=== PATIENT | female | born 1970 | race American Indian/Alaskan Native ===

== ENCOUNTER 2016-10-11 15:46 | Emergency (ER) | payer MEDICARE, MEDICAID ==
[~2016-10-11 15:46] MED LIST: ALPRAZOLAM0.5 MG PO; BACTRIM DS 8001 TAB PO; BRINTELLIX PO; BUSPIRONE5 MG PO; CEFDINIR300 MG PO; CELEXA20 MG PO; CEPHALEXIN500 M1 PO; CHLORHEXIDINE480 M1 PO; CITALOPRAM20 MG PO; CLEOCIN HC150 MG/CAP PO; CLINDAMYCIN300 MG PO; CLONAZEPAM0.5 MG; CYMBALTA60 M1 PO; DEPAKOTE ER500 M1 PO; DEPAKOTE500 M2 PO; DICLOFENAC; DOXYCYCLINE 10100 MG PO; ESTRACE0.5 MG; FLUOXETINE20 M1 PO; GOOD SENSE IBU200 MG PO; METOPROLOL SUCC25 M1 PO; METOPROLOL SUCC50 M1 PO; NORCO 325 MG-51 TA1 PO; NORCO 325 MG-51 TAB PO; OMEPRAZOLE D/R20 MG PO; OXYCODONE5 M1 PO; PAXIL10 MG PO; RANITIDINE150 MG PO; REQUIP0.25 MG PO; RISPERDAL 1M1 MG/TAB; ROXICODONE 55 MG/TAB PO; SERTRALINE; ST. JOSEPH81 M2 PO; XANAX0.5 MG PO; XANAX1 MG PO; ZOFRAN 4MG4 MG/2 ML IV; [UNRECOGNIZED DRUG - CODE] IV
[2016-10-11 15:57] VITALS: BP 99/53
== END 2016-10-11 17:26 | disposition left against medical advice (07) ==
LOC: ED 15:46
DX: K04.7 Periapical abscess without sinus (principal); K02.9 Dental caries, unspecified; Z53.20 Procedure and treatment not carried out because of patient's decision for unspecified reasons; F17.210 Nicotine dependence, cigarettes, uncomplicated

== ENCOUNTER 2017-03-02 10:53 | Emergency (ER) | payer MEDICARE, MEDICAID ==
[~2017-03-02] VITALS: Ht 172.7 cm; Wt 106.8 kg
[2017-03-02] MEDS ORDERED: OXYCODONE PO (12:21)
[2017-03-02] MEDS ORDERED: BACITRACIN TOPIC1 TU TP (12:21)
[2017-03-02 12:27] VITALS: BP 143/88
== END 2017-03-02 12:32 | disposition home or self-care (01) ==
LOC: ED 10:53
DX: T23.231A Burn of second degree of multiple right fingers (nail), not including thumb, initial encounter (principal); T23.151A Burn of first degree of right palm, initial encounter; X03.8XXA Other exposure to controlled fire, not in building or structure, initial encounter; W01.198A Fall on same level from slipping, tripping and stumbling with subsequent striking against other object, initial encounter; X19.XXXA Contact with other heat and hot substances, initial encounter

== ENCOUNTER 2017-04-05 12:06 | Emergency (ER) | payer MEDICARE, MEDICAID ==
[~2017-04-05] VITALS: Ht 172.7 cm; Wt 106.8 kg
[~2017-04-05 12:06] MED LIST changes: +BACITRACIN TOPIC1 TU TP; +OXYCODONE PO
[2017-04-05] MEDS ORDERED: OSTERA TABLET1 EACH PO (12:15)
[2017-04-05 13:08] VITALS: BP 128/78
== END 2017-04-05 13:09 | disposition home or self-care (01) ==
LOC: ED 12:06
DX: K12.0 Recurrent oral aphthae (principal)

== ENCOUNTER 2017-10-28 14:49 | Emergency (ER) | payer MEDICARE, MEDICAID ==
[~2017-10-28 14:49] MED LIST changes: +OSTERA TABLET1 EACH PO
[2017-10-28] MEDS ORDERED: IBU800 M1 PO (15:06)
[2017-10-28] MEDS ORDERED: BACTRIM DS TAB1 EACH PO (15:34)
[2017-10-28] MEDS ORDERED: LIDOCAINE HC20 MG/M1 MM (15:34)
[2017-10-28] MEDS ORDERED: XANAX0.5 M1 PO (15:34)
[2017-10-28] MEDS ORDERED: OXYCODONE5 M1 PO (15:34)
[2017-10-28 15:40] VITALS: BP 130/71
== END 2017-10-28 15:50 | disposition home or self-care (01) ==
LOC: ED 14:49
DX: J32.9 Chronic sinusitis, unspecified (principal); H92.01 Otalgia, right ear; F41.9 Anxiety disorder, unspecified; K12.1 Other forms of stomatitis; F17.200 Nicotine dependence, unspecified, uncomplicated; F32.9 Major depressive disorder, single episode, unspecified; F43.10 Post-traumatic stress disorder, unspecified

== ENCOUNTER 2017-11-22 14:16 | Emergency (ER) | payer MEDICARE, MEDICAID ==
[~2017-11-22 14:16] MED LIST changes: +BACTRIM DS TAB1 EACH PO; +IBU800 M1 PO; +LIDOCAINE HC20 MG/M1 MM; +XANAX0.5 M1 PO
[2017-11-22 14:32] VITALS: BP 123/78
[2017-11-22] MEDS ORDERED: MUCINEX DM 60 M1 TER PO (14:58)
[2017-11-22] MEDS ORDERED: RT ALBUTEROL CC18 GM IH (14:58)
[2017-11-22] MEDS ORDERED: OXYCODONE5 M1 PO (14:58)
[2017-11-22] MEDS ORDERED: CEFDINIR300 MG PO (14:58)
== END 2017-11-22 15:05 | disposition home or self-care (01) ==
LOC: ED 14:16
DX: H66.93 Otitis media, unspecified, bilateral (principal); J01.90 Acute sinusitis, unspecified; F17.200 Nicotine dependence, unspecified, uncomplicated; F41.9 Anxiety disorder, unspecified; F32.9 Major depressive disorder, single episode, unspecified; Z88.0 Allergy status to penicillin

== ENCOUNTER 2020-03-24 19:08 | Emergency (ER) | payer MEDICARE, MEDICAID ==
[~2020-03-24] VITALS: Ht 172.7 cm; Wt 89.8 kg
[~2020-03-24 19:08] MED LIST changes: -CLONAZEPAM0.5 MG; +KLONOPIN 1MG1 MG PO; +MUCINEX DM 60 M1 TER PO; +RT ALBUTEROL CC18 GM IH
[2020-03-24] MEDS ORDERED: NORCO 325 MG-51 TA1 PO (21:50)
[2020-03-24 22:03] VITALS: BP 122/73
== END 2020-03-24 22:04 | disposition home or self-care (01) ==
LOC: ED 19:08
DX: S02.2XXA Fracture of nasal bones, initial encounter for closed fracture (principal); S00.81XA Abrasion of other part of head, initial encounter; K21.9 Gastro-esophageal reflux disease without esophagitis; J45.909 Unspecified asthma, uncomplicated; F43.10 Post-traumatic stress disorder, unspecified; F17.210 Nicotine dependence, cigarettes, uncomplicated; Z88.0 Allergy status to penicillin; Z23 Encounter for immunization; Y04.8XXA Assault by other bodily force, initial encounter; Y92.009 Unspecified place in unspecified non-institutional (private) residence as the place of occurrence of the external cause
CPT/HCPCS: 90715

== ENCOUNTER 2020-12-16 17:28 | Emergency (ER) | payer MEDICARE, MEDICAID ==
[~2020-12-16 17:28] MED LIST changes: +CLEOCIN HCL150 M1 PO; -ESTRACE0.5 MG; +ESTRACE1 M1 PO; +ROPINIROLE HCL1 MG PO
[2020-12-16] MEDS ORDERED: RISPERIDONE M-TA2 MG PO (17:39)
[2020-12-16] MEDS ORDERED: PERCOCET 325 MG1 TA2 PO (18:18)
[2020-12-16 18:56] VITALS: BP 134/85
== END 2020-12-16 18:57 | disposition home or self-care (01) ==
LOC: ED 17:28
DX: K02.9 Dental caries, unspecified (principal); R56.9 Unspecified convulsions; F17.210 Nicotine dependence, cigarettes, uncomplicated; Z88.0 Allergy status to penicillin; Z79.51 Long term (current) use of inhaled steroids
CPT/HCPCS: J1885

== ENCOUNTER 2021-03-22 03:45 | Emergency (ER) | payer MEDICARE, MEDICAID ==
[~2021-03-22 03:45] MED LIST changes: +PERCOCET 325 MG1 TA2 PO; +RISPERIDONE M-TA2 MG PO
[2021-03-22] MEDS ORDERED: KLONOPIN 1MG1 MG PO (03:56)
[2021-03-22] MEDS ORDERED: TRAMADOL 50 MG TAB PO ×2 (03:56→05:46)
[2021-03-22] MEDS ORDERED: IBU800 M1 PO (05:46)
[2021-03-22 06:00] VITALS: BP 118/78
== END 2021-03-22 06:01 | disposition home or self-care (01) ==
LOC: ED 03:45
DX: M25.512 Pain in left shoulder (principal); F41.9 Anxiety disorder, unspecified; F32.9 Major depressive disorder, single episode, unspecified; F43.10 Post-traumatic stress disorder, unspecified; G89.29 Other chronic pain; M54.9 Dorsalgia, unspecified; F17.210 Nicotine dependence, cigarettes, uncomplicated; Z79.899 Other long term (current) drug therapy
CPT/HCPCS: J1885

== ENCOUNTER 2021-03-25 17:01 | Emergency (ER) | payer MEDICARE, MEDICAID ==
[~2021-03-25 17:01] MED LIST changes: +TRAMADOL 50 MG TAB PO
[2021-03-25 17:02] VITALS: BP 101/69
[2021-03-25 17:46] LABS: HEMATOCRIT 44.3 % (37.0-47.0); HEMOGLOBIN 15.1 g/dL (12.5-16.0); MEAN CELL VOLUME 84 fl (78-100); MEAN CORPUSCULAR HEMOGLOBIN 29 pg (27-31); MEAN CORPUSCULAR HGB CONC 34 g/dL (33-37); MEAN PLATELET VOLUME 8.5 fl (7.4-10.4); PLATELET COUNT 201 K/mm3 (130-400); RED BLOOD COUNT 5.27 M/mm3 (4.10-5.30); RED CELL DISTRIBUTION WIDTH 11.9 % (11.5-14.5); WHITE BLOOD COUNT 4.7 K/mm3 (4.8-10.8)
[2021-03-25 17:53] LABS: ALBUMIN 3.7 g/dL (3.5-5.0); POTASSIUM 3.5 mmol/L (3.5-5.1)
[2021-03-25 17:55] LABS: CALCIUM 9.5 mg/dL (8.3-10.5)
[2021-03-25 17:56] LABS: TOTAL PROTEIN 7.7 g/dL (6.4-8.3)
[2021-03-25 17:58] LABS: TOTAL BILIRUBIN 1.6 mg/dL (0.2-1.2)
[2021-03-25 19:11] LABS: LYMPHOCYTE 11 % (20-51); MONOCYTE 9 % (3-10); NEUTROPHILS 80 % (42-75); TEAR DROP CELLS 1+
[2021-03-25 19:44] LABS: URINE APPEARANCE HAZY; URINE BILIRUBIN NEGATIVE (NEGATIVE); URINE COLOR YELLOW; URINE GLUCOSE NEGATIVE (NEGATIVE); URINE KETONE NEGATIVE (NEGATIVE); URINE PROTEIN(semi-quant) TRACE mg/dL (NEGATIVE); URINE UROBILINOGEN 12 mg/dL (NORMAL)
[2021-03-25 19:45] LABS: URINE BLOOD NEGATIVE (NEGATIVE); URINE LEUKOCYTE ESTERASE TRACE (NEGATIVE); URINE MUCUS PRESENT (NOT PRESENT); URINE NITRATE NEGATIVE (NEGATIVE)
[2021-03-25] MEDS ORDERED: ROXICODONE 55 MG/TAB PO (21:31)
[2021-03-25 22:40] LABS: ALCOHOL IN-HOUSE < 10 mg/dL (<10)
[2021-03-25 22:42] LABS: LIPASE 33 U/L (8-78)
== END 2021-03-25 23:10 | disposition home or self-care (01) ==
LOC: ED 17:01
PROVIDERS: Physician Assistant
DX: B19.20 Unspecified viral hepatitis C without hepatic coma (principal); G40.909 Epilepsy, unspecified, not intractable, without status epilepticus; F17.200 Nicotine dependence, unspecified, uncomplicated; Z20.822 Contact with and (suspected) exposure to COVID-19; Z90.49 Acquired absence of other specified parts of digestive tract; Z90.710 Acquired absence of both cervix and uterus; Z79.899 Other long term (current) drug therapy
CPT/HCPCS: J1885; J7030; Q9967

== ENCOUNTER 2023-09-20 10:09 | Observation (INO) | payer MEDICARE, MEDICAID ==
[2023-09-20] VITALS (8 sets, daily range): BP systolic 89–100; BP diastolic 43–62
[~2023-09-20] VITALS: Ht 167.6 cm; Wt 78.3 kg
[~2023-09-20 10:09] MED LIST changes: +CYCLOBENZAPRINE10 M1 PO; +ESTRACE 1MG1 MG/TAB PO; +GOOD NEIGHBOR200 M3 PO; +OXYCODONE HCL10 M1 PO; +PHENERGAN 25 TA25 MG PO
[2023-09-20 10:55] LABS: HEMOGLOBIN 12.8 g/dL (12.5-16.0); MEAN CELL VOLUME 87 fl (78-100); MEAN CORPUSCULAR HEMOGLOBIN 29 pg (27-31); MEAN CORPUSCULAR HGB CONC 34 g/dL (33-37); MEAN PLATELET VOLUME 9.3 fl (7.4-10.4); PLATELET COUNT 211 K/mm3 (130-400); RED BLOOD COUNT 4.36 M/mm3 (4.10-5.30); RED CELL DISTRIBUTION WIDTH 12.7 % (11.5-14.5); WHITE BLOOD COUNT 19.2 K/mm3 (4.8-10.8)
[2023-09-20 10:56] LABS: ALBUMIN 3.5 g/dL (3.5-5.0)
[2023-09-20 10:57] LABS: CALCIUM 8.8 mg/dL (8.3-10.5)
[2023-09-20 10:59] LABS: TOTAL PROTEIN 6.3 g/dL (6.4-8.3)
[2023-09-20 11:14] LABS: TOTAL BILIRUBIN 0.5 mg/dL (0.2-1.2)
[2023-09-20 11:19] LABS: BAND 9 % (0-10)
[2023-09-20 11:20] LABS: LYMPHOCYTE 4 % (20-51); METAMYELOCYTE 1 % (0-0); MONOCYTE 6 % (3-10); NEUTROPHILS 79 % (42-75)
[2023-09-20 12:10] LABS: PH-URINE 5.5 (5.0 - 8.0); URINE APPEARANCE CLOUDY (CLEAR); URINE COLOR YELLOW (YELLOW); URINE GLUCOSE NEGATIVE (NEGATIVE); URINE KETONE NEGATIVE (NEGATIVE); URINE PROTEIN(semi-quant) 1+ (NEGATIVE)
[2023-09-20 12:11] LABS: URINE BILIRUBIN 1+ (NEGATIVE); URINE BLOOD TRACE-INTACT (NEGATIVE); URINE LEUKOCYTE ESTERASE NEGATIVE (NEGATIVE); URINE NITRATE NEGATIVE (NEGATIVE)
[2023-09-21] VITALS (7 sets, daily range): BP systolic 92–114; BP diastolic 56–72
[2023-09-21 07:11] LABS: HEMATOCRIT 33.3 % (37.0-47.0); HEMOGLOBIN 10.9 g/dL (12.5-16.0); MEAN CELL VOLUME 90 fl (78-100); MEAN CORPUSCULAR HEMOGLOBIN 29 pg (27-31); MEAN CORPUSCULAR HGB CONC 33 g/dL (33-37); PLATELET COUNT 175 K/mm3 (130-400); RED BLOOD COUNT 3.71 M/mm3 (4.10-5.30); RED CELL DISTRIBUTION WIDTH 12.9 % (11.5-14.5)
[2023-09-21 07:14] LABS: WHITE BLOOD COUNT 24.2 K/mm3 (4.8-10.8)
[2023-09-21 07:17] LABS: ALBUMIN 3.1 g/dL (3.5-5.0)
[2023-09-21 07:19] LABS: CALCIUM 8.2 mg/dL (8.3-10.5)
[2023-09-21 07:20] LABS: TOTAL PROTEIN 5.4 g/dL (6.4-8.3)
[2023-09-21 07:22] LABS: TOTAL BILIRUBIN 0.5 mg/dL (0.2-1.2)
[2023-09-21 08:04] LABS: LYMPHOCYTE 8 % (20-51); MONOCYTE 6 % (3-10); NEUTROPHILS 86 % (42-75)
[2023-09-22 02:12] VITALS: BP 102/67
[2023-09-22 05:49] VITALS: BP 111/73
[2023-09-22 09:01] LABS: BASO # 0.05 K/mm3 (0.02-0.10); EOS % 1.8 % (1.0-5.0); HEMATOCRIT 33.3 % (37.0-47.0); HEMOGLOBIN 11.1 g/dL (12.5-16.0); LYMPH# 2.63 K/mm3 (1.50-4.00); MEAN CELL VOLUME 88 fl (78-100); MEAN CORPUSCULAR HEMOGLOBIN 29 pg (27-31); MEAN CORPUSCULAR HGB CONC 33 g/dL (33-37); MEAN PLATELET VOLUME 9.8 fl (7.4-10.4); MONO # 0.67 K/mm3 (0.20-0.80); NEU # 12.64 K/mm3 (1.40-6.50); PLATELET COUNT 200 K/mm3 (130-400); RED BLOOD COUNT 3.79 M/mm3 (4.10-5.30); RED CELL DISTRIBUTION WIDTH 12.7 % (11.5-14.5); WHITE BLOOD COUNT 16.4 K/mm3 (4.8-10.8)
[2023-09-22 09:12] LABS: ALBUMIN 3.1 g/dL (3.5-5.0)
[2023-09-22 09:14] LABS: CALCIUM 8.6 mg/dL (8.3-10.5)
[2023-09-22 09:15] LABS: TOTAL PROTEIN 5.9 g/dL (6.4-8.3)
[2023-09-22 09:17] LABS: TOTAL BILIRUBIN 0.3 mg/dL (0.2-1.2)
[2023-09-22 09:52] VITALS: BP 123/76
[2023-09-22 13:43] VITALS: BP 121/73
[2023-09-22 17:13] VITALS: BP 110/63
== END 2023-09-22 19:19 | disposition other institution (70) ==
LOC: ED 10:09 → MED/SURG 12:03
PROVIDERS: Internal Medicine; ADMIT Physician Assistant
DX: R11.2 Nausea with vomiting, unspecified (principal); D72.829 Elevated white blood cell count, unspecified; I95.9 Hypotension, unspecified; I47.10 Supraventricular tachycardia, unspecified; F41.9 Anxiety disorder, unspecified; F17.210 Nicotine dependence, cigarettes, uncomplicated; Z59.00 Homelessness unspecified; Z86.19 Personal history of other infectious and parasitic diseases
CPT/HCPCS: G0378; J1885; J2405; J2543; J3370; J7030; J7050; Q9967

== ENCOUNTER 2023-09-22 15:45 | Inpatient (IN) | payer MEDICARE, MEDICAID ==
[~2023-09-22] VITALS: Ht 167.6 cm; Wt 78.3 kg
[2023-09-22 17:57] VITALS: BP 110/63
[2023-09-22 21:49] VITALS: BP 122/77
[2023-09-23 02:29] VITALS: BP 136/84
[2023-09-23 05:39] VITALS: BP 128/80
[2023-09-23 06:12] LABS: BASO # 0.05 K/mm3 (0.02-0.10); EOS # 0.44 K/mm3 (0.04-0.40); EOS % 3.9 % (1.0-5.0); HEMOGLOBIN 11.2 g/dL (12.5-16.0); LYMPH# 3.05 K/mm3 (1.50-4.00); MEAN CELL VOLUME 89 fl (78-100); MEAN CORPUSCULAR HEMOGLOBIN 29 pg (27-31); MEAN CORPUSCULAR HGB CONC 33 g/dL (33-37); MEAN PLATELET VOLUME 9.6 fl (7.4-10.4); MONO # 0.68 K/mm3 (0.20-0.80); NEU # 7.09 K/mm3 (1.40-6.50); PLATELET COUNT 228 K/mm3 (130-400); RED BLOOD COUNT 3.83 M/mm3 (4.10-5.30); RED CELL DISTRIBUTION WIDTH 12.7 % (11.5-14.5); WHITE BLOOD COUNT 11.4 K/mm3 (4.8-10.8)
[2023-09-23 06:17] LABS: CALCIUM 8.6 mg/dL (8.3-10.5)
[2023-09-23 06:18] LABS: TOTAL PROTEIN 5.6 g/dL (6.4-8.3)
[2023-09-23 06:33] LABS: TOTAL BILIRUBIN 0.3 mg/dL (0.2-1.2)
[2023-09-23 10:10] VITALS: BP 127/82
[2023-09-23 14:10] VITALS: BP 136/82
[2023-09-23 17:18] VITALS: BP 129/83
[2023-09-23 21:26] VITALS: BP 149/84
[2023-09-24 01:15] VITALS: BP 117/66
[2023-09-24 05:45] VITALS: BP 146/83
[2023-09-24 06:24] LABS: BASO # 0.04 K/mm3 (0.02-0.10); EOS # 0.35 K/mm3 (0.04-0.40); EOS % 3.6 % (1.0-5.0); HEMOGLOBIN 11.6 g/dL (12.5-16.0); LYMPH# 3.05 K/mm3 (1.50-4.00); MEAN CELL VOLUME 87 fl (78-100); MEAN CORPUSCULAR HEMOGLOBIN 30 pg (27-31); MEAN CORPUSCULAR HGB CONC 34 g/dL (33-37); MEAN PLATELET VOLUME 9.4 fl (7.4-10.4); MONO # 0.52 K/mm3 (0.20-0.80); NEU # 5.72 K/mm3 (1.40-6.50); PLATELET COUNT 243 K/mm3 (130-400); RED BLOOD COUNT 3.93 M/mm3 (4.10-5.30); RED CELL DISTRIBUTION WIDTH 12.5 % (11.5-14.5); WHITE BLOOD COUNT 9.8 K/mm3 (4.8-10.8)
[2023-09-24 06:31] LABS: CALCIUM 8.7 mg/dL (8.3-10.5)
[2023-09-24 06:32] LABS: TOTAL PROTEIN 5.6 g/dL (6.4-8.3)
[2023-09-24 06:56] LABS: TOTAL BILIRUBIN 0.3 mg/dL (0.2-1.2)
[2023-09-24 09:53] VITALS: BP 126/69
[2023-09-24] MEDS ORDERED: AMOXICILLIN AND1 TA2 PO ×2 (13:42→13:56)
[2023-09-24] MEDS ORDERED: METOPROLOL SUCC25 M1 PO ×2 (13:43→13:56)
== END 2023-09-24 14:45 | disposition home or self-care (01) | DRG 392 ==
LOC: MED/SURG 15:45
PROVIDERS: Nurse Practitioner; ADMIT Internal Medicine
DX: K52.9 Noninfective gastroenteritis and colitis, unspecified (principal); I47.10 Supraventricular tachycardia, unspecified; Z59.00 Homelessness unspecified; I95.9 Hypotension, unspecified; G40.909 Epilepsy, unspecified, not intractable, without status epilepticus; Z79.899 Other long term (current) drug therapy; Z88.0 Allergy status to penicillin; D72.829 Elevated white blood cell count, unspecified; F41.9 Anxiety disorder, unspecified; B19.20 Unspecified viral hepatitis C without hepatic coma; E86.9 Volume depletion, unspecified
CPT/HCPCS: J2543; J3370; J7050

== ENCOUNTER 2024-05-06 19:20 | Emergency (ER) | payer MEDICARE, MEDICAID ==
[~2024-05-06] VITALS: Ht 165.1 cm; Wt 86.0 kg
[~2024-05-06 19:20] MED LIST changes: +AMOXICILLIN AND1 TA2 PO; +VOLTAREN ARTHRI20 GM TP
[2024-05-06] MEDS ORDERED: ROPINIROLE HCL1 MG PO (19:30)
[2024-05-06] MEDS ORDERED: RISPERDAL 1M1 MG/TAB PO (19:31)
[2024-05-06 20:54] LABS: URINE APPEARANCE SLIGHTLY CLOUDY (CLEAR); URINE COLOR YELLOW (YELLOW)
[2024-05-06 20:58] LABS: PH-URINE 5.5 (5.0 - 8.0); URINE BILIRUBIN NEGATIVE (NEGATIVE); URINE BLOOD NEGATIVE (NEGATIVE); URINE GLUCOSE NEGATIVE (NEGATIVE); URINE KETONE NEGATIVE (NEGATIVE); URINE LEUKOCYTE ESTERASE NEGATIVE (NEGATIVE); URINE NITRATE NEGATIVE (NEGATIVE); URINE PROTEIN(semi-quant) NEGATIVE (NEGATIVE)
[2024-05-06 21:02] LABS: URINE MUCUS PRESENT (NOT PRESENT)
[2024-05-06 22:02] VITALS: BP 121/79
== END 2024-05-06 22:05 | disposition home or self-care (01) ==
LOC: ED 19:20
PROVIDERS: Physician Assistant
DX: R51.9 Headache, unspecified (principal); M54.2 Cervicalgia; Y04.8XXA Assault by other bodily force, initial encounter